=== PATIENT | female | born 1945 | race Caucasian/White ===

== ENCOUNTER 2016-10-27 11:48 | Emergency (ER) | payer OTHER ==
[~2016-10-27] VITALS: Ht 162.6 cm; Wt 66.7 kg
[~2016-10-27 11:48] MED LIST: ACYCLOVIR200 MG PO; ADVIL,NUPRIN,M200 MG PO; Acyclovir PO; BONIVA150 MG PO; CALTRATE 6001 TABLET PO; CELEBREX200 MG PO; CITRACAL PLUS1 EAC1 PO; Caltrate 600+D Plus PO; Coreg PO; DILAUDID2 MG PO; Dilaudid PO; Ecotrin PO; FISH OIL 1,0001 EAC7 PO; Feosol PO; Flonase BOTH NARES; LEVAQUIN500 MG PO; Lovenox SC; METRO GEL 1%60 GM TP; Macrobid PO; NITROFURANTOIN100 MG PO; OCUVITE1 TABLET PO; ONE DAILY FOR1 EAC1 PO; Ocu-Omega PO; Ocuvite PO; Percocet 5/325,Endoc PO; SENOKOT S,PE1 TABLET PO; Senokot S,Pericolace PO; THERAGRAN1 TABLET PO; TRAMADOL HCL50 MG PO; Theragran PO; ULTRAVATE 0.05% TP; Vicodin,Norco 5/325 PO; Vitamin D PO; [UNRECOGNIZED DRUG - OTHER] PO; celeBREX PO
[2016-10-27] MEDS ORDERED: ZOFRAN ODT4 MG PO (12:58)
[2016-10-27 13:56] VITALS: BP 181/98
== END 2016-10-27 13:56 | disposition home or self-care (01) ==
LOC: EME 11:48
DX: S06.0X0A Concussion without loss of consciousness, initial encounter (principal); W18.30XA Fall on same level, unspecified, initial encounter; Z96.642 Presence of left artificial hip joint
CPT/HCPCS: 70450; 99281; 99284

== ENCOUNTER 2017-04-04 14:02 | Emergency (ER) | payer OTHER ==
[~2017-04-04] VITALS: Ht 162.6 cm; Wt 67.3 kg
[~2017-04-04 14:02] MED LIST changes: +ZOFRAN ODT4 MG PO
[2017-04-04 14:44] VITALS: BP 149/73
== END 2017-04-04 17:50 | disposition home or self-care (01) ==
LOC: EME 14:02
DX: S16.1XXA Strain of muscle, fascia and tendon at neck level, initial encounter (principal); F07.81 Postconcussional syndrome; V49.50XA Passenger injured in collision with unspecified motor vehicles in traffic accident, initial encounter
CPT/HCPCS: 70450; 72125; 99281; 99285